=== PATIENT | male | born 1985 | race Two or more races ===

== ENCOUNTER 2025-01-15 17:56 | Emergency (ER) | payer BC, SELFPAY ==
[2025-01-15 18:01] VITALS: BP 127/76; PULSE 67; TEMP 36.4; O2SAT 95; BMI 31.6
--- NOTE | 2025-01-15 18:14 | XR_ITS ---
[facility] [place] [id number] Patient Name: MOOSE RIOS MRN: [id number] date: 1985 Sex: M Assigned Patient Location: ED.MAIN Current Patient Location: Accession/Order Number: [id number] Exam Date: 01/15/2025 18:38 Report Date: 01/16/2025 08:00 At the request of: JULIANA SAWANT Procedure: XR chest 2V PA AND LATERAL CHEST: CLINICAL HISTORY: Anxiety attack COMPARISON: None Minor basilar atelectasis and/or scarring is seen. There is no focal parenchymal consolidation, effusion or pneumothorax. The cardiac, hilar and mediastinal silhouettes are within normal limits. There is no vascular congestion. The visualized bony thorax is intact. XR/XR chest 2V IMPRESSION: NO ACUTE CARDIOPULMONARY ABNORMALITY. Impression dictated by: Rosalind Caceres M.D. 01/16/2025 8:00 AM Dictation Location: [place] [address] Electronically authenticated by: [id number] Y Date: 01/16/2025 08:00
--- NOTE | 2025-01-15 18:14 | ECG_ITS ---
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 Measurements Intervals [place] Rate: 60 P: 52 FL: 154 QRS: 47 QRSD: 88 T: 42 QT: 372 QTc: 374 Interpretive Statements 1100 Sinus rhythm 9110 normal ECG No previous ECG available for comparison Electronically Signed On 01-15-2025 18:43:19 EST by RACHEAL MONROE M.D.
[2025-01-15 18:20] VITALS: PULSE 63
[2025-01-15] MEDS: ALPRAZOLAM 0.5 MG TABLET PO (18:23)
--- OUTSIDE RECORDS SUMMARY | 2025-01-15 18:26 | XMS_ITS | Clinical Summary ---
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 Name Role Phone Unallocated, Nomjessica Provider Primary Care Provi collette Allergies No known active allergies Medications No known medications Family History Medical HistoryRelationNameCommentsNo Known ProblemsBrotherNo Known Problems FatherNo Known ProblemsMotherNo Known ProblemsSisterRelationNameStatusComments BrotherAliveFatherAliveMotherAliveSisterAlive Social History Tobacco UseTypesPacks/DayYears UsedDateSmoking Tobacco: Some DaysCigarettes Passive Smoke Exposure: NeverSmokeless Tobacco: Never Tobacco Cessation:Ready to Q uit: Not Asked; Counseling Given: Not Answered Alcohol UseStandard Drinks/WeekCommentsYes0 (1 standard drink = 0.6 oz pure alcohol)Sex and Gender InformationValueDate RecordedSex Assigned at BirthNot on fileLegal RqsDzjb2910/31/2022 9:40 AM EDTGender IdentityNot on fileSexual OrientationNot on file Last Filed Vital Signs Vital SignReadingTime TakenCommentsBlood Iqmgjwqu926/8009 10:44 AM EDT Edkqe0752 10:44 AM KMZPxxlmcpuhkk39.5 ??C (97.7 ??F)10/31/2022 10:44 AM EDTRespiratory Rate--Oxygen Jpaugceszz97%10/31/2022 10:44 AM EDTInhaled Oxygen Concentration--Ooultf64.3 kg (210 lb)10/31/2022 10:44 AM HHKYrllgb727.5 cm (5' 2 )10/31/2022 10:44 AM EDTBody Mass Index38.41010/31/2022 10:44 AM EDT Plan of Treatment Not on file Care Teams Team MemberRelationshipSpecialtyStart DateEnd Date Unallocated, Noms ProviderMD [address] [place] [address] [facility] - General10/31/22
--- OUTSIDE RECORDS SUMMARY | 2025-01-15 18:26 | XMS_ITS | Clinical Summary ---
Author Organization Definition [facility] Address [id number] [address] 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 30 tablet 04/27/2022ctive triamcinolone (KENALOG) 0.1 % ointment Indications:RashApply 1 Application topically in the morning and 1 Application before bedtime. 30 g 11/25/2023ctive Active Problems ProblemNoted DateDiagnosed BxosNqww66/25/2024 Social History Tobacco UseTypesPacks/DayYears UsedDateSmoking Tobacco: NeverSmokeless Tobacco: Never Tobacco Cessation:Counseling Given: Not Answered Alcohol UseStandard Drinks/WeekCommentsYes3 (1 standard drink = 0.6 oz pure alcohol)occasionalChildcareAnswerDate QiozfmviZugjyjvijSzkmhrx87/04/2021 EmploymentAnswerDate AzaxehyqHxgvcpvmhvLmbmolx39/04/2021Hunger ScreeningAnswer Date RecordedWithin the past 12 months we worried whether our food would run out before we got money to buy more.Never True11/25/2023Within the past 12 months the food we bought just didn't last and we didn't have money to get more.Never True11/25/2023urpose - LifeAnswerDate RecordedPurpose and direction in life Wzxqxks2805/03/2020ex and Gender InformationValueDate RecordedSex Assigned at BirthNot on fileLegal WyjIwzb4205/03/2020 8:57 PM ESTGender IdentityNot on file Sexual OrientationNot on file Last Filed Vital Signs Vital SignReadingTime TakenCommentsBlood Lkoqmewn858/7007 8:59 PM EDT Pbytn8624/29/2024 8:59 PM EAMKscomlvtldj88.7 ??C (98.1 ??F)09/28/2023 8:59 PM EDTRespiratory Pzhb219609/28/2023 8:59 PM EDTOxygen Cytcxfqeel87%09/28/2023 8:59 PM EDTInhaled Oxygen Concentration--Aflaby18.8 kg (220 lb)04/27/2022 8:14 PM EST Mvgasj804.8 cm (5' 10 )04/27/2022 8:14 PM ESTBody Mass Index31.57004/27/2022 8:14 PM EST Plan of Treatment Health MaintenanceDue DateLast DoneCommentsDepression Wvnezmpkj79/13/1998 DTaP,Tdap and Td Vaccines (1 - Tdap)2004Adult BMI Nooerzczg80/26/2024 04/27/2022OVID-19 Vaccine (2 - season)/08/2020Influenza Tviwjdf9810/31/2024Tobacco Aivguvcuy88 Medical Devices Not on file Care Teams Team MemberRelationshipSpecialtyStart DateEnd Date No Pcp, [place] [address] PCP - GeneralFamily Medicine09/28/23
[2025-01-15 18:30] VITALS: PULSE 70; PULSE 71
--- NOTE | 2025-01-15 18:38 | ED_ITS ---
HPI - Anxiety General Chief Complaint: Anxiety Stated Complaint: ANXIETY Time Seen by Provider: 01/15/25 18:12 Source: patient Mode of arrival: walk-in Limitations: no limitations History of Present Illness HPI narrative: 39-year-old male was brought to the emergency room by private car with chief complaint of feeling anxious. Patient states he was at work sitting for his meeting prior to starting work and became anxious. He said he felt his heart race and then felt tingling in his hands. He states he has a lot of stress going on at home taking care of sisters 6 children and other issues. He denies any suicidal homicidal ideation. He has not seen a physician and states he needs a new primary care physician. He does have a history of anxiety in the past. He is not currently on any medications for anxiety. He denies any chest pain at this time MD complaint: Reports anxiety and heart racing Related Data Allergies Allergy/AdvReac Type Severity Reaction Status Date / Time No Known Drug Allergies Allergy Verified 01/15/25 18:01 Review of Systems ROS Status of ROS 10 or more systems reviewed and unremark able except as noted in history and below PFSH PFSH Social History Little interest or pleasure in doing things: not at all Feeling down, depressed, or hopeless: not at all Exam Narrative Exam Narrative: All Systems are negative except as noted/marked.All systems reviewed and otherwise negative Nurses note and vital signs reviewed and patient is not hypoxic. General: The patient anxious but states feeling improved Patient is resting comfortably on cart. Skin: Warm, dry, no pallor noted. There is no rash noted. Head: Normocephalic, atraumatic Eye: Normal conjunctiva, no drainage, EOMI. PERRL Ears, Nose, Mouth, and Throat: oral mucosa is moist. Nares patent. Mouth without vesicles. Ear canals patent. Tm's without Erythema Cardiovascular: Regular Rate and Rhythm Respiratory: Patient is in no distress, no accessory muscle use, lungs are jared ar to auscultation, no wheezing, rales or rhonchi Back: non-tender, no CVA tenderness bilaterally to percussion. Musculoskeletal: The patient has no evidence of calf tenderness, no pitting edema, symmetrical pulses noted bilaterally Neurological: A&O x4, normal speech Psychiatric: Cooperative Constitutional Vital Signs, click to edit/add: Last Vital Signs Temp 97.6 F 01/15/25 18:01 Pulse 83 01/15/25 18:40 Resp 20 01/15/25 18:40 BP 127/76 01/15/25 18:01 Pulse Ox 95 01/15/25 18:01 O2 Del Method Room Air 01/15/25 18:01 Course Vital Signs Vital signs: Vital Signs Temperature 97.6 F 01/15/25 18:01 Pulse Rate 67 01/15/25 18:01 Respiratory Rate 16 01/15/25 18:01 Blood Pressure 127/76 01/15/25 18:01 Pulse Oximetry 95 01/15/25 18:01 Oxygen Delivery Method Room Air 01/15/25 18:01 Temperature 97.6 F 01/15/25 18:01 Pulse Rate 83 01/15/25 18:40 Respiratory Rate 20 01/15/25 18:40 Blood Pressure 127/76 01/15/25 18:01 Pulse Oximetry 95 01/15/25 18:01 Oxygen Delivery Method Room Air 01/15/25 18:01 MDM - Anxiety MDM Narrative Medical decision making narrative: 39-year-old male was brought to the emergency room by private car with chief complaint of feeling anxious. Patient states he was at work sitting for his meeting prior to starting work and became anxious. He said he felt his heart race and then felt tingling in his hands. He states he has a lot of stress going on at home taking care of sisters 6 children and other issues. He denies any suicidal homicidal ideation. He has not seen a physician and states he needs a new primary care physician. He does have a history of anxiety in the past. He is not currently on any medications for anxiety. He denies any chest pain at this time He patient presented here with chief complaint of anxiety attack. Patient looks well this time was medicated here with 0.5 mg Xanax and states he does feel much improved. Patient will be given a follow-up with Dr. Fulton as he does not have a primary care physician. Patient will follow-up with primary care physician as discussed. Reasons return to the emergency room were discussed. Patient's cardiac core measure was 0. EKG chest x-ray within normal limit Differential Diagnosis Differential diagnosis: Likely acute anxiety and other Medical Records Attestation: I reviewed the patient's medical records. Lab Data Attestation: I reviewed the patient's lab results. Imaging Data Chest x-ray: Attestation: I have reviewed the pertinent imaging results. My impression: NEG ECG Data Interpretation: 1818 EKG shows a normal sinus rhythm with a rate of 60 bpm, OR interval 154 ms QRS duration 88 ms no STEMI Discharge Plan Discharge Chief Complaint: Anxiety Clinical Impression: Acute anxiety Patient Disposition: Home, Self-Care Time of Disposition Decision: 18:52 Condition: Good Print Language: Malay Instructions: Anxiety (ED) Referrals: Maddi Fulton DO [Physician, Hospitalist] - 1 week Physician,Non-Staff, MD [Primary Care Provider] - 1 week
[2025-01-15 18:40] VITALS: PULSE 83
== END 2025-01-15 19:04 | disposition home or self-care (01) ==
PROVIDERS: Emergency Provider Emergency Medicine
DX: F41.9 Anxiety disorder, unspecified (principal)
CPT/HCPCS: 71046; 93005; 99284